=== PATIENT | male | born 1960 | race Caucasian/White ===

== ENCOUNTER → 2017-12-26 | Outpatient (CLI) | payer MEDICARE, MEDICAID ==
[~2017-12-26] MED LIST: ALEVE220 M1 PO; APAP500 PO; ASA5UEC PO; B12INJ IM; BACLOFEN 10MG T10 M1 PO; BACLOFEN 10MG T10 MG PO; BACLOFEN20 MG PO; BISACODYL SUPP10 MG RE; CRESTOR20 MG PO; CYMBALTA60 MG PO; DAZIDOX10 MG PO; DESYREL50 MG PO; FISH OIL 1,0001 EAC5 PO; LASIX 20 MG TAB20 MG PO; LYRICA100 MG PO; LYRICA150 MG PO; METHADONE HCL 110 M1 PO; METHADONE HCL5 MG PO; MULTIVITAMINS; NEURONTIN600 MG PO; NEURONTIN800 MG PO; OXYCODON-ACETA1 EAC1 PO; OXYCODONE HCL 55 MG PO; OXYCODONE HCL15 MG PO; PERCOCET 5-3251 EACH PO; PRILOSEC40 MG PO; RITALIN5 MG PO; STOOL SOFTENER1 EAC2 PO; TAMSULOSIN HCL0.4 MG PO; TRAZODONE 150150 M1 PO; TRILEPTAL150 MG PO; VITAMIN D 5050000 I1 PO; VITAMIN D1000 UNI1 PO; VOLTAREN GEL 1100 G2 TOP; WELLBUTRIN XL300 MG PO
--- NOTE | 2017-12-31 07:00 | PAINCON ---
[address] [address] PAIN MANAGEMENT CONSULTATION Name: LANDRY JUNIOR [id number] Admission: 12/26/17 Attend Phys: Darby Hardin Discharge: Date of : 64 Report #: [id number] THIS REPORT FOR: //name// CC: Dr. Debora Benavidez The patient is a 57-year-old gentleman who had prior been treated by myself for chronic neuropathic pain, status post cervical decompressive laminectomy with myelopathic symptoms and chronic pain syndrome, requiring complex medication management. He returns to pain clinic today for prolonged visit. He has been in senior living facility for the last 9 months. He has fortunately weaned down off of opiate analgesics, currently taking Percocet 5/325 four a day. He notes some efficacy with this, but states his functional status is diminished. He had been admitted for exacerbation of schizophrenia, cognitive communication defect, muscle weakness, exacerbation of myelopathy and history of pulmonary compromise. He is scheduled to be discharged from the senior living facility tomorrow. When I had treated him, he was on higher dose opiate, methadone 10 mg t.i.d., baclofen 20 mg 4 times a day, Lyrica 300 mg b.i.d. (two 150 mg tablets b.i.d.). Again, last seen in the pain clinic back in March. He returns to pain clinic today noting pain is primarily in the neck, burning dysesthesia, still has some myelopathic symptoms. Mild ataxia with gait. Has some subjective pain in the left knee, though physical exam shows no ballottable edema here and the ligaments are intact. He describes a "fire" sensation in the upper back. The patient states he has been doing some walking daily. He has really stopped doing physical therapy. I believe this is part of the reason for the discharge. He is getting over a recent pneumonia, currently taking antibiotic. He is down to smoking half to 3/4 of a pack of cigarettes a day. The patient is continued on ibuprofen 600 mg t.i.d., baclofen 20 mg 4 times a day, Cymbalta 60 mg b.i.d., Lyrica 300 mg b.i.d., trazodone 150 mg at bedtime and as noted in the chief complaint, Percocet 5/325 3-4 tablets a day. Percocet 5 mg at 4 tablets a day (20 mg oxycodone) would be equivalent to 30 mg of morphine or roughly 7 mg of methadone. The patient states that the methadone helped better with neuropathic pain and again with the NMDA component of methadone, I suspect that this is likely true. Also, with methadone, there is less dopamine release as seen with a short acting opiate (oxycodone). PHYSICAL EXAMINATION: Notes pleasant 57-year-old gentleman. He is alert and oriented to person, place and time at this time. BMI is about 23.9 kilograms per meter squared. Blood pressure 145/73, pulse 76, respirations 16. [facility] [address] [place] [address] PAIN MANAGEMENT CONSULTATION Name: DAVIDYAMILETHMELLISSALANDRY Pereira Room: [facility]#: [id number] Admission: 12/26/17 Attend Phys: Darby Hardin Discharge: Date of : 64 Report #: [id number] range of motion is limited. Significant cosmetic defect following multiple midline cervical spine surgeries. Has a fixed cervical kyphosis. Upper extremity strength is symmetric about 4/5 to all muscle groups tested. Hand grasp is good. Heart is regular and rhythmical without murmur. Lungs have some scattered rhonchi. Abdomen is modestly endomorphic. Rises from chair using armrest. Somewhat ataxic gait. Subjective pain in the left knee as noted in chief complaint. Ligaments are intact and there is no ballottable edema. ASSESSMENT: Neuropathic pain, requiring complex medication management, status post cervical decompressive laminectomy with myelopathic component. RECOMMENDATIONS: We will refer to Dr. Cazares regarding continuation of general medications including atorvastatin, clonazepam, currently 0.5 mg b.i.d., ipratropium-albuterol nebulization, prednisone, trazodone 150 mg at bedtime. I will resume his Cymbalta 60 mg b.i.d., ibuprofen 600 mg t.i.d., baclofen 20 mg up to 4 times a day for spasm, Lyrica 150 mg 2 tablets b.i.d. We will rotate from Percocet 5/325 up to 4 a day to methadone 2.5 mg t.i.d. (one half of a 5 mg tablet t.i.d.). I have taken the liberty of writing for 45 hydrocodone tablets, requesting pharmacist to cut in half, the patient to take one tablet q. 8 hours and will follow up in 4 weeks for reevaluation. We will get a buccal swab at that time. The patient was discharged in good and stable condition after prolonged visit, was seen from approximately 9:00 a.m. to 9:30. Greater than 50% of the 25-minute visit was spent counseling the patient. <ELECTRONICALLY SIGNED> By: Travis Benavidez DO 12/31/17 0700 [id number] Centerpollo Benavidez DO /gwyn
== END ==
LOC: M.PC 01:23
DX: M79.2 Neuralgia and neuritis, unspecified (principal); Z98.890 Other specified postprocedural states; Z79.899 Other long term (current) drug therapy

== ENCOUNTER → 2018-01-23 | Outpatient (CLI) | payer MEDICARE, MEDICAID ==
--- NOTE | 2018-01-26 09:57 | PAINCON ---
[facility] [address] [place] [address] PAIN MANAGEMENT CONSULTATION Name: LANDRY JUNIOR Room: [facility] Eliud#: [id number] Admission: 01/23/18 Attend Phys: Darby Hardin Discharge: Date of : 64 Report #: [id number] THIS REPORT FOR: //name// CC: Devon Benavidez The patient is a very pleasant 57-year-old gentleman long known to the pain clinic. Status post urgent/emergent posterior cervical decompression and fusion for acute myelopathy. Initial surgery was 2007. Since that time, the patient has struggled with ongoing neck and upper back pain. Still had some ongoing myelopathic symptoms with left foot drop, occasional bowel or bladder incontinence, some myelopathic component of gait disturbance. Does have disconjugate gaze. Has significant kyphotic cervical flexion deformity secondary to the surgery. The patient has been managed with high dose opiates for quite some time. Had an episode of psychosis, was hospitalized and weaned off all agents. We resumed "Frederic's" care in December. Resumed low dose methadone titrating from 2.5 mg t.i.d., currently at 5 mg t.i.d. with some efficacy. We continued Lyrica 300 mg b.i.d. (two 150 mg tablets b.i.d.). We continued baclofen 20 mg 4 times a day for spasm and Cymbalta 60 mg b.i.d. The patient returns to pain clinic today. He is doing well on current medications. He continues to smoke and was counseled regarding same. He notes he is doing activities of daily living including walking, some grocery shopping. He is looking to join a health club where he can swim. He would like to start doing some light weight work to maintain some degree of range of motion and muscle tone. He is still using a sauna in conjunction with his narcotic medications. I suggested that if he did use either a steam (wet) or dry sauna, he should do so with great caution for concern for dehydration. I suggested 5-10 minutes maximum in the wet or dry sauna. Unlimited swimming again with a caution for dehydration. Today, the patient notes his subjective pain score is 7 on a VAS, again primarily neck, shoulder blades and some low back. He feels the meds are working "sometimes." Physical exam shows 5 feet 5 inch, 138 pound gentleman, BMI is 23 kilograms per meter squared, blood pressure 144/80, pulse 70, respirations 16. Cervical range of motion is profoundly limited. Permanent kyphotic flexion, fairly large cosmetic defect secondary to the posterior decompression. Upper extremity strength is diminished, but symmetric. Shoulder range of motion is modestly limited. Gait is a little myelopathic, but generally tandem. We reviewed the fact that opiate medications are being used to provide analgesia adequate to support activities of daily living, not attempting to achieve a specific pain score on the 0-10 Visual Analog Scale. The current opiate [facility] [address] [place] [address] PAIN MANAGEMENT CONSULTATION Name: LANDRY JUNIOR [facility] [id number] Admission: 01/23/18 Attend Phys: Darby Hardin Discharge: Date of : 64 Report #: [id number] medications are providing sufficient analgesia to allow the patient to participate in activities of daily living. The patient is not exhibiting any aberrant behavior suggestive of drug diversion. The patient is not having any adverse reactions to medications. The patient is not suffering from daytime somnolence or mental acuity changes. The patient is managing opiate-induced constipation with appropriate [id number] agents and dietary considerations. The patient was counseled on concern for caution with operating a motor vehicle while using opiate medications. A physical exam was performed and the patient's functional status was evaluated. All patients with back pain were advised against the bed rest greater than 4 days and were advised to return to normal activities. Pain score assessment was noted and the treatment plan was reviewed with the patient. All current medications, both prescribed and OTC were reviewed and reconciled on the electronic medical record. Tobacco screening was accomplished and smoking cessation was advised when indicated. BMI was noted and diet/exercise modification was recommended for all patients following outside normal parameters. I reviewed with the patient today their responsibilities to safeguard prescription medications, reviewed their responsibility to utilize medications only as prescribed by the physician. They are to seek and receive pain medications only from 1 physician group ( [facility]). They are to use 1 pharmacy and keep the clinic informed if they change pharmacies. Their responsibilities include making followup visits in a timely fashion and to avoid abrupt discontinuation of medication usage. Their responsibilities further include bringing their medications (bottles from the pharmacy with residual pills) to the visit for possible confirmation of pill counts and the patient understands it is their responsibility to submit to random drug screens to ensure both that the medications prescribed are present, and that no other controlled substances are present. All prescriptions provided today were generated electronically. ASSESSMENT: Neuropathic pain requiring complex medication management status post extensive cervical decompressive laminectomy and fusion, stable on baseline medication including methadone 5 mg t.i.d., Cymbalta 60 mg b.i.d., baclofen 20 mg q.i.d., and Lyrica 300 mg b.i.d. I have taken the liberty of writing for 2 months of current medication. Follow up at that time. We did review opiate consent to treat contract today, we will check a random drug screen at next visit. <ELECTRONICALLY SIGNED> By: Travis Benavidez DO 01/26/18 [id number] Benavidez DO /nt
== END ==
LOC: M.PC 02:55
DX: M79.2 Neuralgia and neuritis, unspecified (principal); Z79.899 Other long term (current) drug therapy